=== PATIENT | female | born 1970 | race Caucasian/White ===

== ENCOUNTER 2020-04-27 10:30 | Inpatient (IN) | payer OTHER ==
[2020-04-27 11:14] VITALS: BMI 33.1
[2020-04-27 12:10] LABS: Hemoglobin 14.5 g/dL (12.0-16.0); Mean Corpuscular HGB CONC 34.8 g/dL (32.0-36.0); Mean Corpuscular Hemoglobin 32.5 pg (27.0-31.0); Mean Corpuscular Volume 93.5 fL (78.0-98.0); Mean Platelet Volume 8.5 fL (7.4-10.4); Platelet Count 286 thou/uL (130-400); Red Blood Cell (RBC) Count 4.47 mill/uL (4.20-5.40); White Blood Cell (WBC) Count 9.2 thou/uL (4.8-10.8)
[2020-04-27 12:32] LABS: ALT (SGPT) 13 U/L (8-55); AST (SGOT) 13 U/L (5-34); Albumin 3.8 g/dL (3.5-5.0); Alkaline Phosphatase 65 U/L (40-110); Anion Gap 11 mmol/L (10-20); BUN (Urea Nitrogen) 18 mg/dL (9.8-20.1); Bilirubin, Total 0.4 mg/dL (0.2-1.2); Calc. Creatinine Clearance 0 mL/min (70-130); Calcium 9.4 mg/dL (7.8-10.44); Carbon Dioxide 28 mmol/L (22-29); Chloride 103 mmol/L (98-107); Estimated GFR-MDRD Greater than 90; Globulin 3.3 g/dL (2.4-3.5); Glucose 98 mg/dL (70-105); Potassium 3.8 mmol/L (3.5-5.1); Protein, Total 7.1 g/dL (6.0-8.3); Sodium 138 mmol/L (136-145)
[2020-04-27 18:10] LABS: SARS-CoV-2 MS2 Positive; SARS-CoV-2 N Gene Negative; SARS-CoV-2 S Gene Negative; SARS-CoV-2 orf1ab Negative
[2020-05-01] MEDS ORDERED: Succinylcholine Chloride 20 MG/ML 10 ml SYRINGE FS ONE (09:23)
[2020-05-01] MEDS ORDERED: Lidocaine 1% PF 5 ML VIAL ONE (09:23)
[2020-05-01] MEDS ORDERED: Rocuronium Bromide 10 MG/ML (10ML VIAL) ONE (09:23)
[2020-05-01] MEDS ORDERED: PROPOFOL 200 MG/20 ML VIAL ONE (09:23)
--- NOTE | 2020-05-01 10:25 | HP ---
HISTORY OF PRESENT ILLNESS: Ms. Yi is a 49-year-old white female, who has an enlarged uterus with a large uterine fibroid. She has been experiencing continued menometrorrhagia, and was initially referred to me from the [facility] in February of this year. She reports having heavy irregular periods, where she will flow through maxi pad and tampons in 30 minutes. She has had a recent normal Pap smear. She will bleed for 2 weeks at a time and has a history of partial colon resection in the past. She was evaluated in my office on 03/21, and she was noted to have a very large 10 to 12 cm uterine fibroid. Her uterus was approximately 22-week size. Endometrial biopsy was performed at that visit, which was benign. PAST MEDICAL HISTORY: Also significant for essential hypertension, insomnia. PAST SURGICAL HISTORY: As noted, partial colon resection in February of 2006 and ankle procedure in February of 2006. SOCIAL HISTORY: Intermittent smoker. No excessive alcohol use. FAMILY HISTORY: Unremarkable and not pertinent to current admission. ALLERGIES: SHE HAS NO KNOWN DRUG ALLERGIES. CURRENT MEDS: 1. Dextroamphetamine-amphetamine 30 mg tablet one tablet twice a day as needed for ADD. 2. Triamterene-hydrochlorothiazide 37.5/25 mg tablet daily for hypertension. 3. Zolpidem 10 mg at night for sleep as needed. OB HISTORY: She is a G2, P2, two spontaneous vaginal deliveries. PHYSICAL EXAMINATION: VITAL SIGNS: Height 5 feet 4 inches, weight is 193, pulse is 94 and regular, blood pressure 148/94, BMI 33, respiratory rate 18, and O2 saturation on room air 99%. HEENT: Within normal limits. CHEST: Clear to auscultation. HEART: Regular rate and rhythm. S1 and S2 heart sounds. No murmurs, rubs, or gallops. ABDOMEN: Soft. No tenderness. She has a well-healed vertical midline incision noted. She has a uterine mass that is palpable up to 2 cm above her umbilicus. PELVIC: Vulva and vagina had no lesions. Cervix had no lesions. Noted enlarged uterus with large fibroid, 22-week size. Ultrasound in my office did show her to have a very large fibroid that filled the entire uterus measuring 11 x 11 x 12 cm. No adnexal masses could be seen, although this was limited due to the large fibroid. ASSESSMENT: This is a 49-year-old white female with a large 10 x 12 cm submucosal fibroid and symptomatic menorrhagia and pain. PLAN: Plan is to proceed with total abdominal hysterectomy and bilateral salpingo-oophorectomy on 05/01/2020. The patient has also had a history of partial colon resection in the past. Risks and benefits of procedure have been discussed in detail. She is set for surgery on 05/01/2020. Job ID: [id number]
[2020-05-01] MEDS ORDERED: Famotidine/PF 20 mg/2ml Vial ONE (10:37)
[2020-05-01] MEDS ORDERED: Gabapentin 300 MG CAP ONE (10:37)
[2020-05-01] MEDS ORDERED: CeleCOXIB 100 MG CAP ONE (10:37)
[2020-05-01] MEDS ORDERED: Fentanyl 100 MCG/2 ML VIAL ONE ×5 (11:56→15:59)
[2020-05-01] MEDS ORDERED: Ropivacaine 0.2% 550 ML 750 ML NERVE BLCK SCH ×2 (12:45→14:00)
[2020-05-01] MEDS ORDERED: Lidocaine 1% (PF) 30 ML VIAL ONE (13:02)
[2020-05-01] MEDS ORDERED: Zolpidem Tartrate 5 MG TAB PO PRN ×2 (14:45→17:04)
[2020-05-01] MEDS ORDERED: Morphine 4 MG/ML VIAL SLOW IVP PRN (14:45)
[2020-05-01] MEDS ORDERED: diphenhydrAMINE 25 MG CAP PO PRN ×2 (14:45→17:04)
[2020-05-01] MEDS ORDERED: Promethazine HCl 25 MG/ML VIAL IM PRN ×2 (14:45→17:04)
[2020-05-01] MEDS ORDERED: Ondansetron PF 4 MG/2 ML Vial IVP PRN ×2 (14:45→17:04)
[2020-05-01] MEDS ORDERED: HYDROcodone/Acetaminophen 5/325 mg Tablet PO PRN ×2 (14:45)
[2020-05-01] MEDS ORDERED: Bisacodyl 10 MG SUPP PR PRN (14:45)
[2020-05-01] MEDS ORDERED: HYDROmorphone 0.5 MG/0.5 ML SYRINGE ONE ×3 (14:50→16:37)
[2020-05-01] MEDS ORDERED: Ondansetron PF 4 MG/2 ML Vial ONE (16:42)
[2020-05-01] MEDS ORDERED: diphenhydrAMINE 50 MG/ML VIAL IM PRN (17:04)
[2020-05-01] MEDS ORDERED: fentaNYL Citrate/PF 2,000 MCG in Sodium Chloride 0.9% 60 ML IV PRN (17:04)
[2020-05-01] MEDS ORDERED: Naloxone HCl 0.4 mg/ml Vial IV PRN (17:04)
[2020-05-01] MEDS ORDERED: diphenhydrAMINE 50 MG/ML VIAL IVP PRN (17:04)
[2020-05-01] MEDS ORDERED: Communication Order-Pharmacy FS SCH (17:15)
[2020-05-01] MEDS: Sodium Chloride 0.9% 1,000 ML IV SCH ×2 (20:42→21:36)
[2020-05-01] MEDS: Ketorolac Tromethamine 30 MG/ML VIAL IVP SCH (20:51)
--- NOTE | 2020-05-02 00:13 | OP ---
DATE OF PROCEDURE: 05/01/2020 PREOPERATIVE DIAGNOSES: 1. A 49-year-old white female with 20-week uterine fibroids. 2. Menorrhagia. 3. Pelvic pain. 4. History of previous colon resection for diverticular abscess. POSTOPERATIVE DIAGNOSES: 1. A 49-year-old white female with 20-week uterine fibroids. 2. Menorrhagia. 3. Pelvic pain. 4. History of previous colon resection for diverticular abscess. 5. Pelvic adhesive disease, most likely prior left salpingo-oophorectomy during colon resection. PROCEDURE PERFORMED: Total abdominal hysterectomy with right salpingo-oophorectomy. CLEAN ROOM ASSEMBLER SURGEON: Garcia Graves DO MS ANESTHESIA: General endotracheal. ESTIMATED BLOOD LOSS: 1200 mL. PATHOLOGY: Uterus, cervix, and right tube and ovary. FINDINGS: 1. Large uterine fibroid filling the pelvis from sidewall to sidewall up to the umbilicus, which was also very friable tissue noted. 2. Appears to be absence of left tube and ovary, most likely removed during previous colon resection of the sigmoid colon in the past. 3. Right tube and ovary were normal in appearance, but were adhesed to the pelvic sidewall, status post excision. 4. Clear urine present in Escobar catheter postprocedure. 5. Course of each ureter appeared to be palpated below the operative sites noted. DISPOSITION: To recovery room, stable. DESCRIPTION OF PROCEDURE: The patient previously received informed consent in regard to surgery. She was taken back to the operating room, where she received a general endotracheal anesthetic agent without complications. She was placed in the supine position and prepped and draped in usual sterile fashion with Escobar catheter and SCDs being placed. At this time, a vertical skin incision was made in the prior incision site just to the umbilicus. This was carried down the fascia. Fascia was nicked in the midline. Fascial incision was extended superiorly and inferiorly. The rectus muscle bellies were then divided in the midline, and the peritoneal cavity was entered. The large fundal fibroid was then maneuvered through the incision, and then an Zee'Luis Angel-O'Bernard retractor was placed after the bowel had been packed away and the patient has been placed in Trendelenburg position. We then clamped the left uterine ovarian ligament near the fundus and started a Jean type hysterectomy, where the each uterine ovarian ligament was doubly clamped, and then the pedicle site was cut and this was suture ligated with a Bindu suture of 0 Vicryl. Continued to work on the left side, clamping medially on to the specimen side and then laterally in the broad ligament, clamping and cutting these pedicles and suture ligating them from hemostasis. The left round ligament was then reached. It was clamped and cut, and suture ligated securing hemostasis. The tissue on the backside of the pelvis of filmy adhesions with friability and inflammatory type reaction from the most likely degeneration of the fibroid. These areas were packed with dry laparotomy sponges for hemostasis while we continued immobilization of the large uterine fibroid. Similarly, we carried out this technique on the right side again clamping close to the large fibroid at the fundus and then the broad ligament developing these pedicles and suture ligating them again the round ligament was reached. This gave more mobility to the large mass, which we pulled up towards and more out of that incisional site. We were then able to see around the anterior fibroid region, where the vesicouterine peritoneum was incised and then we brought down the bladder both sharply and bluntly. This isolated also of the uterine vessels, which we were able to get access to then after this dissection was carried out just below the large fibroid. The both right and left uterine vessel complex were clamped just below the large uterine fibroid and these were transected and suture ligated. This then allowed for us to amputate the large uterine fibroid, which was carried out with Bovie cautery. A ribbon retractor was placed posteriorly behind the uterus to protect the inadvertent bowel injury. We transected the large fibroid out and then the remainders of the cervical stump was grasped with Torito clamps. The bladder was further dissected down past the cervical vaginal margin both sharply and bluntly. Any further peritoneal adhesions were taken down from the lower posterior cervix sharply with Metzenbaum scissors. Once this was obtained, then the bilateral remaining cardinal ligament complexes were clamped with straight Wendy clamps and these were transected and suture ligated until both cervical vaginal angles were reached. Then, a curved Bindu clamp was placed on each cervical vaginal angle below the cervical stump and these were clamped, and then the remainder of the cervix was excised with Braga scissors. The vaginal angles were then closed and secured with half mattress sutures of 0 Vicryl suture and tagged. The space of the vaginal cuff had been clamped, grasped with 2 Torito clamps, and 2 [id number] sutures were placed and the remainder of the vaginal cuff for hemostasis. We then removed the right tube and ovary, which were adhesed to the pelvic sidewall. The fallopian tube was grasped with a Esperanza clamp, and then peritoneal incision was made underneath this to help mobilize the right fallopian tube and mobilize the right infundibulopelvic ligament vessels. I opened up the posterior retroperitoneal space just above this to ascertain the position of the ureter. This was visualized and palpated and noted to be inferior to the isolated infundibulopelvic ligament prior to clamping of this. Bindu clamp was placed on the IP ligament. This was transected and suture ligated in a suture technique and a free tie of 0 Vicryl on a large infundibulopelvic ligament vein. We then continued to remove the right ovarian tissue that was adhesed to the retroperitoneal surface in both sharp and blunt dissection and then this was excised. Hemostasis in the area was confirmed after this. There was some area of some oozing on the patient's left pelvic sidewall. This was grasped with a tonsil clamp, and a suture ligature was placed securing hemostasis. We inspected the left pelvic sidewall for the adnexal structures of the left ovary and tube, and we did not appear to find anything that resembled left tube and ovary. This may have been removed as we thought during the partial colectomy in the sigmoid region for previous diverticulitis indications. The pelvis was then irrigated and again, hemostasis was confirmed. Two Floseals were placed on each pelvic sidewall for added hemostasis due to the somewhat friable and oozing nature of the tissues. Once this had been confirmed, the O'Luis Angel-O'Bernard retractor was removed. All lap sponges were accounted for. The edges of the fascia were then grasped with 2 Torito clamps and the apex of it was also grasped. A #1 of 0 PDS suture was then placed at the superior edge of the fascial incision. On-Q pump size 5 double lumen was then placed through the skin superior to this under the fascia and the above the muscle. During direct visualization, the peritoneum was closed with interrupted 2-0 Vicryl sutures, closing the peritoneum. We then closed the fascia with a double #1 PDS starting superiorly and carried down about two-thirds of the incision, where we then floated the catheter for the On-Q pump on each side. Then, the remainder of the fascia was closed through the apex and tied off. The subcutaneous tissue was then irrigated and suctioned. Hemostasis was confirmed. The subcutaneous tissue was approximated with 2-0 Vicryl suture. The skin was then closed with sandoval. The On-Q catheters were flushed with lidocaine, and the patient was then awakened from anesthesia and transferred to recovery room in stable condition. Job ID: [id number]
[2020-05-02] MEDS: Ketorolac Tromethamine 30 MG/ML VIAL IVP SCH ×5 (02:51→23:09)
[2020-05-02] MEDS: Sodium Chloride 0.9% 1,000 ML IV SCH ×3 (05:46→23:11)
[2020-05-02 06:42] LABS: Hemoglobin 8.3 g/dL (12.0-16.0); Mean Corpuscular HGB CONC 33.5 g/dL (32.0-36.0); Mean Corpuscular Hemoglobin 31.9 pg (27.0-31.0); Mean Corpuscular Volume 95.3 fL (78.0-98.0); Mean Platelet Volume 8.6 fL (7.4-10.4); Platelet Count 221 thou/uL (130-400); RBC Distribution Width 13.1 % (11.5-14.5); Red Blood Cell (RBC) Count 2.61 mill/uL (4.20-5.40); White Blood Cell (WBC) Count 7.5 thou/uL (4.8-10.8)
[2020-05-02] MEDS: Triamterene/Hydrochlorothiazide 37.5 mg/25 mg Tablet PO SCH (08:30)
--- NOTE | 2020-05-02 08:47 | PRG ---
DATE OF SERVICE: 05/02/2020 SUBJECTIVE: The patient is tolerating diet. Has good pain control. No nausea or vomiting. Operation was discussed with the patient. OBJECTIVE: VITAL SIGNS: Show her to have a temp of 98.7, pulse is 73, respirations are 16, O2 saturation is 99% on 2 L of nasal cannula, blood pressure is 112/53. Urine output over the past shift has been 525 mL past 12 hours. Hemoglobin this morning is 8.3, starting hematocrit was 14.5. The patient had approximate blood loss of 1200 mL, so it was consistent in the appropriate fall. ABDOMEN: Soft and nondistended. She has bowel sounds. Bandages dry on the vertical midline incision. Perineum is dry with no vaginal bleeding noted. EXTREMITIES: SCDs are in place. ASSESSMENT AND PLAN: This is a 49-year-old white female, postoperative day 1, total abdominal hysterectomy and right salpingo-oophorectomy from very large uterine fibroids. She has postoperative blood loss anemia and appears to be hemodynamically stable with normal vitals with no resting tachycardia and good urine output. Plan is to discontinue the CHAR FILTER TANK TENDER pump for pain and start oral narcotic pain medications and ibuprofen. Will ambulate, discontinue the Escobar. Advance diet as tolerated, and plan for discharge home in a.m. Job ID: [id number]
[2020-05-02] MEDS ORDERED: Non-Formulary Item 1 EACH (Triamterene/Hydrochlorothiazid [Triamterene-Hctz 37.5-25 Mg Cp PO SCH (09:00)
[2020-05-02] MEDS ORDERED: HYDROcodone/Acetaminophen 5/325 mg Tablet PO PRN (09:50)
[2020-05-02] MEDS: HYDROcodone/Acetaminophen 5/325 mg Tablet PO PRN ×2 (09:58→19:59)
[2020-05-02] MEDS: Simethicone Chewable 80 MG TAB PO PRN (19:58)
[2020-05-03] MEDS: HYDROcodone/Acetaminophen 5/325 mg Tablet PO PRN (04:46)
[2020-05-03] MEDS: Simethicone Chewable 80 MG TAB PO PRN (04:47)
[2020-05-03] MEDS ORDERED: Ibuprofen 800 MG TAB PO SCH (06:00)
--- NOTE | 2020-05-03 07:46 | PRG ---
DATE OF SERVICE: 05/03/2020 SUBJECTIVE: The patient is ambulating, voiding, and tolerating diet without difficulty. Her pain control is improved today with oral medications. OBJECTIVE: VITAL SIGNS: Temperature is 98.6, pulse 82 to 100 range, respirations 18, blood pressure 102/49. GENERAL: She has no orthostatic symptoms. ABDOMEN: Her vertical midline incision is intact. She had some serous drainage in the lower aspect of this after coughing episode, but it appears to be similar to serous fluid and is not continuing to accumulate. Pathology showed large uterine fibroids, benign with endometrial polyp. No cervical pathology or ovarian pathology reported. ASSESSMENT AND PLAN: Kd is a 49-year-old white female, status post total abdominal hysterectomy and right salpingo-oophorectomy for very large uterine fibroids for menorrhagia and pelvic pain. She has progressed well in her postoperative course. Plan is to discharge home today. She is to continue the On-Q pump, which would be self discontinued once the fluid runs out, approximately postoperative day 5. Prescription for Sidney 325/5 mg 1 to 2 q.4 to 6 hours will be sent and she has an appointment on May 10 for staple removal and incision check. Job ID: [id number]
[2020-05-03 07:56] VITALS: TEMP 99
[2020-05-03 08:01] VITALS: BP 107/57
[2020-05-03] MEDS: Ketorolac Tromethamine 30 MG/ML VIAL IVP SCH (08:03)
[2020-05-03] MEDS: Triamterene/Hydrochlorothiazide 37.5 mg/25 mg Tablet PO SCH (09:12)
[2020-05-06] MEDS ORDERED: Ibuprofen 800 MG TAB PO SCH (22:00)
== END 2020-05-03 09:40 | disposition home or self-care (01) | DRG 742 ==
LOC: SURG A 05-01 10:18 → 3SW 05-01 18:29
PROVIDERS: ADMIT Obstetrics & Gynecology; ATTEND Obstetrics & Gynecology
PROC: 0UT90ZZ Resection of Uterus, Open Approach (ICD-10-PCS; principal; 2020-05-01)
PROC: 0UT00ZZ Resection of Right Ovary, Open Approach (ICD-10-PCS; 2020-05-01)
PROC: 0UT50ZZ Resection of Right Fallopian Tube, Open Approach (ICD-10-PCS; 2020-05-01)
DX: D25.0 Submucous leiomyoma of uterus (principal); D62 Acute posthemorrhagic anemia; I10 Essential (primary) hypertension; G47.00 Insomnia, unspecified; N92.0 Excessive and frequent menstruation with regular cycle; N99.4 Postprocedural pelvic peritoneal adhesions; N84.0 Polyp of corpus uteri; Z11.59 Encounter for screening for other viral diseases; Z90.49 Acquired absence of other specified parts of digestive tract
CPT/HCPCS: 36415; 80053; 85027; 86850; 86900; 86901; 87635; 88307; 93005; 93010; J0690; J1170; J1885; J2001; J2405; J2704; J3010; S0028; U0003